=== PATIENT | female | born 1950 | race Caucasian/White ===

== ENCOUNTER 2022-03-18 10:57 | Emergency (ER) | payer MEDICARE, MEDICAID ==
[~2022-03-18] VITALS: Ht 162.6 cm; Wt 70.3 kg
[2022-03-18] MEDS ORDERED: GABAPENTIN300 MG PO (11:52)
[2022-03-18] MEDS ORDERED: ONDANSETRON ODT4 MG PO ×2 (11:52→19:16)
[2022-03-18] MEDS ORDERED: OXYCODONE HCL5 MG PO (19:15)
== END 2022-03-18 21:01 | disposition home or self-care (01) ==
LOC: ED 10:57
DX: S32.402A Unspecified fracture of left acetabulum, initial encounter for closed fracture (principal); Z88.5 Allergy status to narcotic agent; Z79.899 Other long term (current) drug therapy
CPT/HCPCS: 36415; 71260; 73502; 74177; 80053; 81001; 83735; 85025; 85060; 96375; 96376; 99284-25; A9270; J1170; J2405; J7040; Q9967

== ENCOUNTER 2024-07-14 12:21 | Emergency (ER) | payer MEDICARE, OTHER ==
[~2024-07-14] VITALS: Ht 152.4 cm; Wt 78.1 kg
[~2024-07-14 12:21] MED LIST: AZITHROMYCIN500 MG PO; BENZONATATE100 MG PO; DICLOFENAC SODI75 MG PO; GABAPENTIN300 MG PO; HYDROCODON-ACE1 EA10 PO; ONDANSETRON ODT4 MG PO; OXYCODONE HCL5 MG PO; VENTOLIN HFA18 GM INH; VITAMIN D21250 MCG
[2024-07-14] MEDS ORDERED: SODIUM CHLORIDE 0.9% 500 ML IV ONE (12:45)
[2024-07-14] MEDS ORDERED: LIDOCAINE 2% VISCOUS 6 ML SYR TOP ONE (12:45)
[2024-07-14] MEDS ORDERED: ondansetron HCL 4 MG/2 ML VIAL IV ONE (12:45)
[2024-07-14 13:21] LABS: HEMATOCRIT 31.7 % (35.0-50.0); HEMOGLOBIN 10.9 g/dL (12.0-18.0); MCH 34.2 (27-36); MCHC 34.4 g/dl (30-36); MCV 99.4 fl (81-99); PLATELET COUNT 189 K/uL (140-440); RBC 3.19 M/ul (4.3-5.7); RDW 20.2 (10.5-15.0)
[2024-07-14 13:35] LABS: PARTIAL THROMBOPLASTIN TIME 30.1 Sec (22.9-41.3)
[2024-07-14 13:36] LABS: INR 1.32 (0.80-1.30); PROTIME 16.3 Sec (11.2-14.2)
[2024-07-14 13:37] LABS: BILIRUBIN, URINE POSITIVE (negative); BLOOD/HGB, URINE LARGE (Negative); KETONE, URINE NEGATIVE (Negative); LEUK ESTERASE, URINE MODERATE (negative); NITRITE, URINE NEGATIVE (negative); PH, URINE 7.5 (5-7)
[2024-07-14 13:38] LABS: LYMPHOCYTES, MANUAL DIFF 1; NEUTROPHILS, MANUAL DIFF 99
[2024-07-14] MEDS ORDERED: methocarbamoL 500 MG TABLET PO ONE ×2 (13:45→17:15)
[2024-07-14] MEDS ORDERED: CEFTRIAXONE SODIUM 2 GM VIAL ONE (13:46)
[2024-07-14 13:47] LABS: ALBUMIN 1.4 g/dL (3.4-5.0); ALBUMIN/GLOBULIN RATIO 0.31 (1.1-2.4); ANION GAP 15.3 (7-21); BILIRUBIN, TOTAL 16.3 mg/dL (0.2-1.0); BUN/CREATININE RATIO 29.8 (6.0-28.6); CALCIUM 8.1 mg/dL (8.5-10.1); CREATININE, SERUM 1.51 mg/dL (0.55-1.02); MAGNESIUM 1.8 mg/dL (1.8-2.4); POTASSIUM 4.3 mmol/L (3.5-5.1); PROTEIN, TOTAL 5.9 g/dL (6.4-8.2)
[2024-07-14 13:47] LABS: BACTERIA, URINE 2+ /hpf (negative); EPITHELIAL CELLS, URINE NONE SEEN /lpf (0-1+)
[2024-07-14 13:48] LABS: CASTS, URINE NONE SEEN \\lpf; COLLECTION TYPE, URINE CLEAN CATCH; REFLEX CULTURE, URINE Yes (No)
[2024-07-14 14:00] LABS: LACTIC ACID, BLOOD 2.6 mmol/L (0.4-2.0)
[2024-07-14] MEDS ORDERED: CEFTRIAXONE SODIUM 2 GM in SODIUM CHLORIDE 0.9% 100 ML IV ONE (14:00)
[2024-07-14] MEDS ORDERED: SODIUM CHLORIDE 0.9% 1,000 ML IV ONE (14:30)
[2024-07-14 15:30] LABS: LACTIC ACID, BLOOD 2.2 mmol/L (0.4-2.0)
[2024-07-14] MEDS ORDERED: ONDANSETRON ODT8 MG PO (18:48)
[2024-07-14 18:57] VITALS: BP 113/70
[2024-07-14] MEDS ORDERED: ONDANSETRON 4 MG HOME.PACK SL ONE (19:00)
[2024-07-15] MEDS ORDERED: CEFDINIR300 MG PO ×2 (12:07→12:14)
== END 2024-07-14 19:10 | disposition home or self-care (01) ==
LOC: ED 12:21
PROVIDERS: Emergency Medicine
DX: A41.9 Sepsis, unspecified organism (principal); K72.90 Hepatic failure, unspecified without coma; Z88.5 Allergy status to narcotic agent; Z79.899 Other long term (current) drug therapy
CPT/HCPCS: 36415; 71045; 74177; 80053; 81001; 82140; 83605; 83690; 83735; 85025; 85610; 85730; A9270; J0696; J2405; J7030; J7040; Q9967